=== PATIENT | male | born 1955 | race Caucasian/White ===

== ENCOUNTER 2018-05-17 06:41 | Inpatient (IN) | payer OTHER ==
[~2018-05-17] VITALS: Ht 180.3 cm; Wt 75.5 kg
[2018-05-17 06:45] VITALS: Ht 180.3 cm; Wt 75.5 kg
--- NOTE | 2018-05-17 06:48 | NUR ---
PT PLACED IN ROOM 9.
--- NOTE | 2018-05-17 06:53 | NUR ---
EKG IN PROGRESS.
--- NOTE | 2018-05-17 06:58 | NUR ---
PATIENT SEEN IN NO DISTRESS, REPORTS HIGH BLOOD PRESSURE. DENIES ANY PAIN AT THIS TIME. REPORTS EARLIER EPISODE OF SOB AND CHEST PAIN, H/O TX AND STENT. PATIENT WAS PLACED ON THE MONITOR SCOPE IS SB.
--- NOTE | 2018-05-17 07:09 | NUR ---
AT THE BEDSIDE AWARE OF HIGH BLOOD PRESSURE/ REPORT ENDORSED TO
--- NOTE | 2018-05-17 07:20 | NUR ---
PT IS AWAKE AND ALERT. BREATHING EVEN AND UNLABORED. PT HOOKED UP TO FULL MONITORS, FAMILY AT BEDSIDE. WILL CONTINUE TO MONITOR,
[2018-05-17 07:34] LABS: BASOPHIL % 0.6 % (0-2); PLATELET COUNT 207 x10^3mcL (130-400); RED CELL DISTRIBUTION WIDTH 14.1 % (11.5-14.5)
--- NOTE | 2018-05-17 07:41 | NUR ---
PT UNABLE TO FIND URINE SAMPLE AT THIS TIME. URINAL PROVIDED AND PT AWARE OF NEED FOR URINE.
[2018-05-17 07:55] LABS: CALCIUM 8.8 mg/dL (8.5-10.1); CARBON DIOXIDE 30.1 mmol/L (21-32); CHLORIDE SERUM 108 mmol/L (98-107); CREATININE SERUM 0.7 mg/dL (0.7-1.3); GFR1 > 60 mL/min; GLUCOSE SERUM 77 mg/dL (74-106); POTASSIUM SERUM 3.6 mmol/L (3.5-5.1); SODIUM SERUM 145 mmol/L (136-145)
[2018-05-17 08:07] LABS: ALBUMIN 3.8 g/dL (3.4-5.0); ALKALINE PHOSPHATASE 58 U/L (46-116); ALT/SGPT 35 U/L (16-63); AST/SGOT 27 U/L (15-37); BILIRUBIN TOTAL 0.71 mg/dL (0.20-1.00); CHOLESTEROL 147 mg/dL (<200); CHOLESTEROL/HDL RATIO 3.1; HDL CHOLESTEROL 47 mg/dL (40-60); LIPASE 169 IU/L (73-393); TOTAL PROTEIN, SERUM 7.2 g/dL (6.4-8.2); TRIGLYCERIDES 48 mg/dL (<150)
--- NOTE | 2018-05-17 08:31 | NUR ---
DR ZHANG AT BEDSIDE DICUSSING RESULTS AND PLAN OF CARE
[2018-05-17 08:58] LABS: FREE T4 0.68 ng/dL (0.76-1.46); FREE THYROXINE INDEX 1.7 ug/dL (1.4-4.5); T4(THYROXINE) 5.1 ug/dL (4.7-13.3)
[2018-05-17 09:35] LABS: microscopic required? NO
[2018-05-17 11:33] LABS: UA SPECIFIC GRAVITY 1.015 (1.005-1.035); urine erythrocyte NEGATIVE (NEGATIVE)
--- NOTE | 2018-05-17 11:33 | NUR ---
RECEIVED PATIENT FROM ED. PARATRANSIT OPERATOR ROSANNA AT BEDSIDE. PATIENT A/OX4, DENIES CP, DIZZINESS, N/V. INSTRUCTED PATIENT TO CALL FOR ASSISTANCE IF NECESSARY, FAMILY AT BEDSIDE. CALL LIGHT IN REACH, BED IN LOWEST POSITION.
[2018-05-17 11:44] VITALS: BP 138/70
--- NOTE | 2018-05-17 13:15 | NUR ---
SPOKE W CUTTER APPRENTICE HAND ROSANNA & CHARGE NURSE IDALIA. KATE MARTE DIALED DR KRISHNAMURTHY FOR CARDIAC CONSULT. DR KRISHNAMURTHY STATED THAT HE WILL BE IN TOMORROW.
--- NOTE | 2018-05-17 13:15 | NUR ---
PATIENTS & DAUGHTERS ASKED ABOUT PLAN OF CARE. HAD QUESTIONS ABOUT SEEING THE SALES OPERATIONS ASSISTANT, THE SCREWHEAD STONER AND POLISHER, WELL THE ECHOCARDIOGRAM. INFORMED PATIENT & FAMILY THAT THE CURRENT SALES OPERATIONS ASSISTANT WILL BE DR AYALA, DEPENDING ON INSURANCE. WILL SPEAK W KATE MARTE ABOUT PLAN. NO CP AT THIS TIME.
--- NOTE | 2018-05-17 14:32 | NUR ---
ACCOMPANIED ARMORED CAR GUARD ROSANNA TO SPEAK W PATIENT & FAMILY. UPDATED TO PLAN OF CARE FOR TODAY & TOMORROW. PATIENT & FAMILY VERBALLY & VISIBLY UPSET ABOUT SITUATION W INSURANCE. CURRENT COURSE OF ACTION IS TO TAKE ORTHOSTATIC BP READINGS, 2D US, ECHOCARDIOGRAM, AND MONITOR FOR ELEVATED TROPONIN. CALL LIGHT IN REACH.
[2018-05-17 16:36] VITALS: BP 124/72
--- NOTE | 2018-05-17 17:00 | NUR ---
SENIOR INTEGRATION DEVELOPER ROSANNA IN PATIENT ROOM TO EXPLAIN PLAN OF CARE, TEST RESULTS, ANSWERED QUESTIONS ABOUT PRESCRIPTIONS & INSURANCE AND HOME CARE. NO CHEST PAIN AT THIS TIME. CALL LIGHT IN REACH, WILL CONTINUE TO FOLLOW UP
--- NOTE | 2018-05-17 18:44 | NUR ---
PATIENT IS BED RESTING, DENIES CHEST PAIN, DIZZINESS, NAUSEA, SYNCOPE DAUGHTER BENSON & NASRIN AT BEDSIDE, ANSWER FURTHER QUESTIONS ABOUT PLAN OF CARE. PATIENT HR SUSTAINING 61 BPM. WILL ENDORSE PATIENT TO ONCOMING NURSE.
--- NOTE | 2018-05-17 19:35 | NUR ---
PT SEEN, ASLEEP BUT EASILY AROUSABLE, ALERT AND ORIENTED, DENIES HEADACHE OR DIZZINESS, BREATHING EVEN AND UNLABORED, LUNG SOUNDS CLEAR, ON ROOM AIR WITH NO RESP DISTRESS NOTED, ON TELE#41 SB WITH HR:58, DENIES CHEST PAIN, SL TO LAC, PULSES PALPABLE, NO EDEMA NOTED, AMBULATORY WITH STEADY GAIT, ABD SOFT WITH ACTIVE BS, NO BM AT THIS TIME, VOIDING FREELY, NO DISTRESS NOTED, WILL KEEP TO MONITOR.
[2018-05-17 20:42] LABS: T3 TOTAL 1.02 ng/mL
[2018-05-17 21:21] VITALS: BP 128/77
[2018-05-18 05:23] VITALS: BP 155/79
[2018-05-18 06:15] LABS: BASOPHIL % 0.6 % (0-2); PLATELET COUNT 217 x10^3mcL (130-400); RED CELL DISTRIBUTION WIDTH 14.2 % (11.5-14.5)
[2018-05-18 06:24] LABS: CALCIUM 8.9 mg/dL (8.5-10.1); CARBON DIOXIDE 27.5 mmol/L (21-32); CHLORIDE SERUM 105 mmol/L (98-107); CREATININE SERUM 0.8 mg/dL (0.7-1.3); GFR1 > 60 mL/min; GLUCOSE SERUM 89 mg/dL (74-106); MAGNESIUM 2.4 mg/dL (1.8-2.4); PHOSPHOROUS 3.3 mg/dL (2.5-4.9); POTASSIUM SERUM 4.2 mmol/L (3.5-5.1); SODIUM SERUM 140 mmol/L (136-145)
--- NOTE | 2018-05-18 07:10 | NUR ---
PT SLEPT MOST OF NIGHT, AAO X 4 WHILE AWAKE, ON FUEL HOUSE ATTENDANT WITH SB, NO C/O OF CHEST PAIN SINCE BEGINNIG OF SHIFT, SL, WILL KEEP TO MONITOR.
--- NOTE | 2018-05-18 08:23 | NUR ---
TALENT RECRUITER ARA ROUNDED, POC OF CARE UPDATED.
[2018-05-18 09:52] VITALS: BP 141/74
[2018-05-18] MEDS ORDERED: NITROGLYCERIN0.4 MG SL (11:28)
[2018-05-18] MEDS ORDERED: GOOD SENSE OMEP20 MG PO (11:29)
[2018-05-18] MEDS ORDERED: COZ25 PO (11:29)
[2018-05-18] MEDS ORDERED: NORVASC5 MG PO (11:30)
[2018-05-18] MEDS ORDERED: SIMVASTATIN20 M1 PO (11:37)
[2018-05-18 12:11] VITALS: BP 141/74; BP 141/82
--- NOTE | 2018-05-18 13:13 | NUR ---
REPORT GIVEN TO JF, ALL QUESTIONS ANSWERED AND CONCERNS ADDRESSED.
[2018-05-18 13:15] VITALS: BP 142/86
--- NOTE | 2018-05-18 13:36 | NUR ---
GIVE ALL THE DISCHARGE INSTRUCTION TO PT. BOTH PT AND DAUGHTER VERBAL STATE UNDERSTAND. IV IS REMOVED. ALL PAPER SIGNED.
--- NOTE | 2018-05-18 13:40 | NUR ---
PT IS LEAVING THE FACILLITY WITH WHEEL CHAIR AND COMPANY WITH ASSEMBLER ENGINE. PT IS A/O X4, NO S/S OF PAIN OR DISCOMFORT. NO S/S OF RESPIRATORY DISTRESS AT THIS MOMENT.
== END 2018-05-18 13:41 | disposition home or self-care (01) | DRG 313 ==
LOC: ED 06:41 → DU 09:17
PROVIDERS: Specialist; ADMIT Internal Medicine
DX: R07.89 Other chest pain (principal); R00.1 Bradycardia, unspecified; I25.10 Atherosclerotic heart disease of native coronary artery without angina pectoris; I10 Essential (primary) hypertension; I25.2 Old myocardial infarction; Z95.1 Presence of aortocoronary bypass graft; E66.9 Obesity, unspecified; Z95.5 Presence of coronary angioplasty implant and graft; Z91.14 Patient's other noncompliance with medication regimen
CPT/HCPCS: 83880; 84439; C9113; J0360